=== PATIENT | male | born 1950 | race Caucasian/White ===

== ENCOUNTER 2025-06-08 07:42 | Day surgery (SDC) | payer OTHER ==
[2025-06-03 13:08] VITALS: BMI 26.8
[2025-06-08 08:03] VITALS: PULSE 78
[2025-06-08] MEDS ORDERED: PROPOFOL 200 ML ONE (08:15)
[2025-06-08] MEDS ORDERED: LIDOCAINE HCL/PF 2% SDV 5ML VIAL ONE (08:15)
[2025-06-08 10:05] VITALS: RESP 18; TEMP 97
[2025-06-08 10:34] VITALS: BP 118/74
== END 2025-06-08 10:26 | disposition home or self-care (01) ==
LOC: FASU-ENDO 07:42
PROVIDERS: ATTEND Internal Medicine Gastroenterology
PROC: 0DBN8ZZ Excision of Sigmoid Colon, Via Natural or Artificial Opening Endoscopic (ICD-10-PCS; principal; 2025-06-08 09:31)
DX: Z12.11 Encounter for screening for malignant neoplasm of colon (principal); Z86.0109 Personal history of other colon polyps; K57.30 Diverticulosis of large intestine without perforation or abscess without bleeding; K64.1 Second degree hemorrhoids; K63.5 Polyp of colon
CPT/HCPCS: 88305-TC